=== PATIENT | male | born 1955 | race Caucasian/White ===

== ENCOUNTER 2016-10-12 06:45 | Day surgery (SDC) | payer BC ==
[~2016-10-12 06:45] MED LIST: Acetaminophen TAB* 325 MG PO PRN; Buffered Lidocaine 1% SYRIN* 5 ML/SYR SYRINGE INTRADERM ONE
[2016-10-12] MEDS ORDERED: Midazolam* 1 MG/ML 2 ML VIAL (2 MG) ONE (07:37)
[2016-10-12] MEDS ORDERED: fentaNYL* 50 MCG/ML 2 ML VIAL (100 MCG VIAL) ONE (07:48)
[2016-10-12 08:19] VITALS: BP 135/82
--- NOTE | 2016-10-12 12:23 | OP ---
DATE OF OPERATION: 10/12/16 - [facility] DATE OF : 53 SURGEON: Davin Richards MD ANESTHESIOLOGIST: Noé Quintana MD ANESTHESIA: Monitored anesthesia care. PRE-OP DIAGNOSIS: Cataract of the right eye. POST-OP DIAGNOSIS: Cataract of the right eye. OPERATIVE PROCEDURE: Cataract extraction of the right eye. IMPLANTS: SN60WF 20.0 diopter lens to the right eye. COMPLICATIONS: None. DESCRIPTION OF PROCEDURE: The patient was given phenylephrine 2.5% and cyclopentolate 1% eye drops to the operative eye in the preoperative area. The patient was brought to the operating room, where a time-out was taken to identify the correct patient, site and side of surgery. The patient's right eye was prepped and draped in the usual sterile fashion with 5% Betadine. A second time-out was taken to verify the correct patient, site, and side of surgery and correct lens selection. A lid speculum was placed to the right eye. A 1-mm paracentesis blade was used to make a clear corneal incision in the superotemporal position. Preservative-free 1% lidocaine was injected into the anterior chamber. DisCoVisc was then injected in the anterior chamber. A 2.75- mm keratome blade was used to make a triplanar incision at the inferotemporal position. A cystotome was used to initiate a capsulorrhexis, which was completed with Utrata forceps in a continuous and curvilinear manner. Hydrodissection of the lens was then performed with BSS on a cannula. The lens could be spun in the capsular bag. The phacoemulsification handpiece was used with a [id number] technique to remove the nucleus in its entirety with 12.48 CDE. The I/A handpiece then removed with residual cortical lens material. DisCoVisc was injected to inflate the capsular bag. The planned SN60WF 20.0 diopter lens was injected in the capsular bag. The residual DisCoVisc was removed from the eye with the I/A handpiece. The corneal incisions were hydrated and no leaks occurred at physiologic pressure around 20 mmHg per palpation. The lid speculum was removed and drapes removed. Maxitrol ointment was placed to the surface of the operative eye. An adhesive patch and shield were placed on the operative eye. The patient was taken to the postoperative area in stable condition. [id number]/[facility] #: [id number] MTDTriston
[2016-10-12] MEDS ORDERED: Cyclopentolate 1% OPTH.SOL* 2 ML BTL ONE (14:44)
[2016-10-12] MEDS ORDERED: Tetracaine 0.5% OPTH.SOL 4 ML* 1 DROP BTL ONE (14:44)
[2016-10-12] MEDS ORDERED: Tropicamide 1% OPTH.SOL* BTL ONE (14:44)
[2016-10-12] MEDS ORDERED: Povidone Iodine 5% OPTH* 30 ML BTL ONE (14:44)
[2016-10-12] MEDS ORDERED: acetaZOLAMIDE TAB* 250 MG ONE (14:44)
[2016-10-12] MEDS ORDERED: Neomycin/Polymy/Dex OPHTH.OIN* 3.5 GM ONE (14:44)
[2016-10-12] MEDS ORDERED: Phenylephrine 2.5% OPTH.SOL* 2 ML BTL ONE (14:44)
[2016-10-12] MEDS ORDERED: Flurbiprofen 0.03% OPTH.SOL* 2.5 ML BTL ONE (14:44)
[2016-10-12] MEDS ORDERED: Lidocaine 1% MPF* 2 ML VIAL ONE (14:44)
== END 2016-10-12 08:22 | disposition home or self-care (01) ==
LOC: OREAST 06:45
PROVIDERS: ATTEND Student in an Organized Health Care Education/Training Program
DX: H25.11 Age-related nuclear cataract, right eye (principal); Q14.8 Other congenital malformations of posterior segment of eye; H53.001 Unspecified amblyopia, right eye; Z87.891 Personal history of nicotine dependence
CPT/HCPCS: A9270-GY; J2250; J3010; V2632

== ENCOUNTER 2016-12-20 15:42 | Emergency (ER) | payer BC ==
[2016-12-20 15:46] VITALS: BP 146/72
[2016-12-20] MEDS ORDERED: Ketorolac INJ* 60 MG/2 ML VIAL IM ONE (17:33)
[2016-12-20] MEDS ORDERED: Carisoprodol TAB* 350 MG PO ONE (17:56)
--- NOTE | 2016-12-20 17:59 | ED ---
Back Pain - HPI Summary HPI Summary: Pt here w/ Rt hip pain. Slept on recliner couch last night which he never does- woke with pain this morning. Worse w/ movement and walking - sharp along side of hip. H/o back issues. Was on opana in the past but wanted to get off of it so stopped taking it. Has tried heat/ice w/o relief. Can't take ibuprofen because he has a sensitivity to it (not clear what) but can take aleve and tordol. Has not tried tylenol either. Has baseline Rt LE reduced sensation and "Sciatica" - denies change in these sx today. No change in bowel/bladder function and no numbness, weakness. Muscle relaxers have helped in the past - only thing he can take without weird reaction with his psych med is soma. Works at [employer] and on his feet all day for years. - History of Current Complaint Chief Complaint: EDHipPelvisInjury Stated Complaint: RIGHT HIP PAIN Time Seen by Provider: 12/20/16 16:53 Hx Obtained From: Patient, Family/Stereoplotter Operator - Pain Intensity: 8 - Allergies/Home Medications Allergies/Adverse Reactions: Allergies Allergy/AdvReac Type Severity Reaction Status Date / Time No Known Drug Allergy Allergy Unknown Verified 10/12/16 06:56 Reaction Details SEASONAL ALLERGIES Allergy Unknown Uncoded 10/12/16 06:56 Reaction Details PMH/Surg Hx/FS Hx/Imm Hx Previously Healthy: Yes Endocrine/Hematology History: Denies: Hx Anticoagulant Therapy, Hx Blood Disorders, Hx Diabetes Cardiovascular History: Reports: Hx Hypertension - controlled with metoprolol Denies: Hx Pacemaker/ICD Respiratory History: Reports: Hx Seasonal Allergies - nasonex GI History: Reports: Hx Gastroesophageal Reflux Disease History: Reports: Hx Kidney Stones - last episode over 20 yrs ago Denies: Hx Renal Disease Musculoskeletal History: Reports: Hx Arthritis - OSTEO - BILATERAL KNEES, Hx Back Problems Sensory History: Reports: Hx Cataracts, Hx Contacts or Glasses - READING Denies: Hx Hearing Aid Opthamlomology History: Reports: Hx Cataracts, Hx Contacts or Glasses - READING Neurological History: Reports: Other Neuro Impairments/Disorders - "Sciatica" Rt LE Psychiatric History: Reports: Hx Anxiety, Hx Depression, Hx Bipolar Disorder - controlled w/ olanzapine/fluoxetine Denies: Hx Panic Disorder - Surgical History Surgery Procedure, Year, and Place: 1998 RIGHT INGUINAL HERNIA REPAIR, [facility]. 2004 COL[address]COPY, [facility] [place]. 12/2013 UMBILICAL HERNIA REPAIR, [facility] [place] Hx Anesthesia Reactions: No Infectious Disease History: Yes Infectious Disease History: Denies: Traveled Outside the [place] in Last 30 Days - Social History Occupation: Employed Full-time - [employer] Lives: With Family Alcohol Use: None Substance Use Type: Reports: None Substance Use Comment - Amount & Last Used: MARIJUANA ONCE IN A WHILE, NONE RECENTLY Hx Tobacco Use: Yes Smoking Status (MU): Former Smoker Amount Used/How Often: OFF AND ON 10 YEARS SMOKED LESS THAN 10 CIGG A DAY Have You Smoked in the Last Year: No Review of Systems Constitutional: Negative Negative: Fever, Chills Negative: Abdominal Pain, Vomiting, Diarrhea, Nausea Positive: no symptoms reported. Negative: incontinence Musculoskeletal: Other - see HPI Negative: Bruising Neurological: Other - see HPI Psychological: Normal All Other Systems Reviewed And Are Negative: Yes Physical Exam Triage Information Reviewed: Yes Vital Signs On Initial Exam: Initial Vitals Temp Pulse Resp BP Pulse Ox 97.2 F 58 16 146/72 97 12/20/16 15:43 12/20/16 15:43 12/20/16 15:43 12/20/16 15:43 12/20/16 15:43 Vital Signs Reviewed: Yes Appearance: Positive: Well-Appearing, No Pain Distress - sleeping cmofortably on stretcher upon entrance to room - woke him with physical stimulation, Obese Skin: Positive: Warm, Dry - no erythema, no ecchymosis over affected area Head/Face: Positive: Normal Head/Face Inspection Eyes: Positive: EOMI ENT: Positive: Hearing grossly normal Respiratory/Lung Sounds: Positive: Breath Sounds Present Cardiovascular: Positive: Pulses are Symmetrical in both Upper and Lower Extremities. Negative: Leg Edema Left, Leg Edema Right Abdomen Description: Positive: Soft Musculoskeletal: Positive: Strength/ROM Intact, Pain @ - lower lumbar spinous pp and Rt quadratus lumborum/SI joint TTP; Rt lateral hip TTP; + Zackary's test Neurological: Positive: Alert, Oriented to Person Place, Time, CN Intact II- III. Negative: Sensory/Motor Intact - pt reports decreased sensation over Rt LE which is baseline for him - otherwise, sensation and motor equal B/L Psychiatric: Positive: Normal Diagnostics - Vital Signs Vital Signs Temp Pulse Resp BP Pulse Ox 12/20/16 15:43 97.2 F 58 16 146/72 97 - Laboratory Lab Statement: Any lab studies that have been ordered have been reviewed, and results considered in the medical decision making process. Re-Evaluation - Re-Evaluation First Eval Change: Improved Discharge - Discharge Plan Condition: Stable Disposition: HOME Prescriptions: Carisoprodol TAB* [Soma TAB*] 350 mg PO BEDTIME PRN #3 tab MDD 1 PRN Reason: Pain Referrals: Micah Gaona MD [Primary Care Provider] - Additional Instructions: You appear to have .... You may alternate heat and ice with gentle stretches to prevent stiffness Stay hydrated You may take aleve 500mg every 12 hours with food and acetaminophen 650mg every 6 hours for pain. If you are having difficulty sleeping at night, you may take soma before bed. Follow-up with PCP this week. Call tomorrow to schedule an appointment. *If you develop weakness, incontinence of bowels/bladder, return to ED
--- NOTE | 2016-12-20 18:47 | RAD ---
INDICATION: Low back and right hip pain COMPARISON: CT of the abdomen and pelvis dated May 14, 2014 TECHNIQUE: 4 views of the lumbar spine and 3 views of the right hip were obtained. FINDINGS: Mild degenerative changes of the lumbar spine includes mild loss of intervertebral disc height. The vertebral bodies and facet joints are appropriately aligned. There is no acute fracture or dislocation. The visualized bones of the right hip are well-corticated and properly aligned. Mild degenerative changes of the bilateral hips include sclerotic formation of the acetabula. There is no radiographic evidence of acute fracture or dislocation. IMPRESSION: Mild degenerative changes involving the lumbar spine and hips without radiographically apparent acute fracture or dislocation. If the patient's symptoms persist follow-up imaging is recommended.
--- NOTE | 2016-12-20 18:53 | PN ---
Progress Note - Progress Note Date of Service: 12/20/16 Note: signed out by Michaelle pending xray xray IMPRESSION: Mild degenerative changes involving the lumbar spine and hips without radiographically apparent acute fracture or dislocation. discussed results with patient could be muscle strain vs arthritis unclear etiology for pain Patient agrees to follow up with primary for further management Diagnosis: hip pain Condition: stable Disposition: home
== END 2016-12-20 19:17 | disposition home or self-care (01) ==
LOC: ED 15:42
DX: M25.551 Pain in right hip (principal); I10 Essential (primary) hypertension; K21.9 Gastro-esophageal reflux disease without esophagitis; F31.9 Bipolar disorder, unspecified; Z87.891 Personal history of nicotine dependence
CPT/HCPCS: 72110; 96372; 99282; A9270-GY; J1885

== ENCOUNTER 2018-08-27 16:40 | Emergency (ER) | payer BC, OTHER ==
[2018-08-27] MEDS ORDERED: Naproxen TAB* 250 MG PO ONE (17:01)
[2018-08-27 17:31] VITALS: BP 136/70
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
== END 2018-08-27 17:31 | disposition home or self-care (01) ==
LOC: ED 16:40
DX: S00.81XA Abrasion of other part of head, initial encounter (principal); V49.59XA Passenger injured in collision with other motor vehicles in traffic accident, initial encounter; Y92.410 Unspecified street and highway as the place of occurrence of the external cause; M54.5 Low back pain; M25.511 Pain in right shoulder; I10 Essential (primary) hypertension; E11.9 Type 2 diabetes mellitus without complications; Z87.891 Personal history of nicotine dependence
CPT/HCPCS: 99282; A9270-GY

== ENCOUNTER 2019-02-06 11:26 | Day surgery (SDC) | payer BC, OTHER ==
[~2019-02-06 11:26] MED LIST changes: -Buffered Lidocaine 1% SYRIN* 5 ML/SYR SYRINGE INTRADERM ONE
[2019-02-06] MEDS ORDERED: Midazolam* 1 MG/ML 5 ML VIAL (5 MG) ONE (13:03)
[2019-02-06] MEDS ORDERED: fentaNYL* 50 MCG/ML 2 ML VIAL (100 MCG VIAL) ONE (13:03)
[2019-02-06 14:55] VITALS: BP 120/53
[2019-02-06] MEDS ORDERED: Cyclopentolate 1% OPTH.SOL* 2 ML BTL ONE (15:52)
[2019-02-06] MEDS ORDERED: Neomycin/Polymy/Dex OPHTH.OIN* 3.5 GM ONE (15:52)
[2019-02-06] MEDS ORDERED: acetaZOLAMIDE TAB* 250 MG ONE (15:52)
[2019-02-06] MEDS ORDERED: Phenylephrine OPHTH SOL 2.5%* 2 ML ONE (15:52)
[2019-02-06] MEDS ORDERED: Tetracaine 0.5% OPTH.SOL 4 ML* 1 DROP BTL ONE (15:52)
[2019-02-06] MEDS ORDERED: Povidone Iodine 5% OPTH* 30 ML BTL ONE (15:52)
[2019-02-06] MEDS ORDERED: Tropicamide 1% OPTH.SOL* BTL ONE (15:52)
[2019-02-06] MEDS ORDERED: Ketorolac 0.5% OPHTH (NF) 0.5 % 5 ML BTL ONE (15:52)
[2019-02-06] MEDS ORDERED: Lidocaine 1% MPF ** 5 ML VIAL ONE (15:52)
--- NOTE | 2019-02-06 22:18 | OP ---
DATE OF OPERATION: 02/06/19 - [facility] DATE OF : 53 SURGEON: Davin Richards MD ANESTHESIA: Monitored anesthesia care. PREOPERATIVE DIAGNOSIS: Cataract, left eye. POSTOPERATIVE DIAGNOSIS: Cataract, left eye. OPERATIVE PROCEDURE: Extracapsular cataract extraction of the left eye with intraocular lens implant. IMPLANT: SN60WF 20.0 diopter lens to the left eye. COMPLICATIONS: None. DESCRIPTION OF PROCEDURE: The patient was given phenylephrine 2.5 % and cyclopentolate 1% eye drops to the operative eye in the preoperative area. The patient was taken to the operating room where a time-out was taken to identify the correct patient, site, and side of surgery. The patient's left eye was prepped and draped in the usual sterile fashion with 5% Betadine. A second time- out was taken to verify the correct patient, side, and site of surgery, as well as the correct lens implant. A lid speculum was placed to the left eye. A 1mm paracentesis blade was used to make a clear corneal incision. Preservative-free 1% lidocaine was injected into the anterior chamber. DisCoVisc was then injected into the anterior chamber. A 2.75 mm keratome blade was used to make a triplanar incision. A cystotome initiated a capsulorrhexis, which was completed with Utrata forceps in a continuous and curvilinear manner. Hydrodissection of the lens was performed with BSS on a cannula. The lens could be spun in a capsular bag. The phacoemulsification handpiece was used with a divide-and- conquer technique to remove the nucleus. The I/A handpiece then removed the residual cortical lens material. DisCoVisc was injected to inflate the capsular bag. The planned SN60WF 20.0 diopter lens was injected into the capsular bag. The residual DisCoVisc was removed from the eye with the I/A handpiece. The corneal incisions were hydrated and no leaks occurred at physiologic pressure around 20 mmHg per palpation. The lid speculum was removed and drapes were removed. Maxitrol ointment was placed to the surface of the operative eye. An adhesive patch and shield was then placed on the operative eye. The patient was taken to the postoperative area in stable condition. [id number]/[facility] #: [id number] [facility]
== END 2019-02-06 15:03 | disposition home or self-care (01) ==
LOC: OREAST 11:26
PROVIDERS: ATTEND Student in an Organized Health Care Education/Training Program
DX: H25.12 Age-related nuclear cataract, left eye (principal); H33.012 Retinal detachment with single break, left eye; H35.372 Puckering of macula, left eye; I10 Essential (primary) hypertension; J44.9 Chronic obstructive pulmonary disease, unspecified; Z87.891 Personal history of nicotine dependence; K21.9 Gastro-esophageal reflux disease without esophagitis; J30.9 Allergic rhinitis, unspecified
CPT/HCPCS: A9270-GY; J2250; J3010; V2632